=== PATIENT | male | born 1960 | race Caucasian/White ===

== ENCOUNTER 2019-06-08 07:29 | Day surgery (SDC) | payer BC ==
[~2019-06-08] VITALS: Ht 170.2 cm; Wt 101.6 kg
[~2019-06-08 07:29] MED LIST: AMIT25; ASPI325; ATOR10 PO; CIPDEXSU; GLIM2; GLIM4 PO; Glucophage1000 MG PO; HYDCHL12.5 PO; LISI20 PO; Lipitor20 MG PO; MELO7.5 PO; METFORMIN HCL1000 MG PO; METO100 PO; Magnesium500 M1 PO; Metoprolol Tar100 MG PO; OMEP20ER; OMEPRAZOLE20 MG PO; SITA100T2 PO; Sudogest30 MG; Super B-50 Com1 EACH PO; TRAZ50 PO; ZESTRIL40 MG
[2019-06-08] MEDS ORDERED: ZOLP10 (08:09)
[2019-06-08] MEDS ORDERED: Aspir 8181 MG (08:10)
== END 2019-06-08 09:43 | disposition home or self-care (01) ==
LOC: ORSCSDS 07:29
PROVIDERS: Internal Medicine Gastroenterology
PROC: 0DBP8ZX Excision of Rectum, Via Natural or Artificial Opening Endoscopic, Diagnostic (ICD-10-PCS; principal; 2019-06-08 08:45)
PROC: 0DBM8ZX Excision of Descending Colon, Via Natural or Artificial Opening Endoscopic, Diagnostic (ICD-10-PCS; principal; 2019-06-08 08:45)
PROC: 0DBH8ZX Excision of Cecum, Via Natural or Artificial Opening Endoscopic, Diagnostic (ICD-10-PCS; principal; 2019-06-08 08:45)
DX: Z12.11 Encounter for screening for malignant neoplasm of colon (principal); D12.0 Benign neoplasm of cecum; K63.5 Polyp of colon; K62.1 Rectal polyp; K64.8 Other hemorrhoids; I10 Essential (primary) hypertension; E11.9 Type 2 diabetes mellitus without complications; K21.9 Gastro-esophageal reflux disease without esophagitis
CPT/HCPCS: 82947; 88305; J2704; J7120

== ENCOUNTER 2024-07-01 07:02 | Emergency (ER) | payer OTHER ==
[~2024-07-01] VITALS: Ht 170.2 cm; Wt 100.0 kg
[~2024-07-01 07:02] MED LIST changes: +Aspir 8181 MG; +ZOLP10
[2024-07-01 09:37] VITALS: BP 150/78
== END 2024-07-01 09:38 | disposition home or self-care (01) ==
LOC: ER 07:02
DX: M77.12 Lateral epicondylitis, left elbow (principal); I10 Essential (primary) hypertension; E78.5 Hyperlipidemia, unspecified; E11.9 Type 2 diabetes mellitus without complications; Z87.891 Personal history of nicotine dependence; Z88.8 Allergy status to other drugs, medicaments and biological substances; Z88.1 Allergy status to other antibiotic agents; Z88.9 Allergy status to unspecified drugs, medicaments and biological substances; Z79.84 Long term (current) use of oral hypoglycemic drugs; Z79.899 Other long term (current) drug therapy
CPT/HCPCS: 99283